=== PATIENT | female | born 2000 | race Caucasian/White ===

== ENCOUNTER 2021-09-30 14:09 | Outpatient (CLI) | payer MEDICAID, SELFPAY ==
[2021-09-30 16:45] LABS: Absolute Lymphocyte Count 3.17 X10^3/uL (0.83-4.51); Basophil# 0.05 X10^3/uL; Basophil% 0.6 % (0-1); Eosinophil# 0.14 X10^3/uL; Eosinophils% 1.8 % (0-5); Hematocrit 45.4 % (37-47); Lymphocyte # 3.17 X10^3/ul (0.83-4.51); Lymphocyte % 40.5 % (19-41); Mean Corpuscular Hgb 31.3 pg (27.0-32.0); Mean Corpuscular Volume 94.6 fL (81-99); Mean Platelet Vol. 10.5 fl (6.2-12.0); Monocyte# 0.49 X10^3/uL; Monocyte% 6.3 % (0-10); NRBC Flagged by Analyzer 0 % (0-5); Neutrophil # 3.95 X10^3/uL (2.7-7.7); Neutrophil % 50.5 % (47-70); Platelet Count 275 K/mm3 (150-450); RBC Distribution Width CV 12.6 % (11.6-14.6); White Blood Count 7.8 K/mm3 (4.4-11.0)
[2021-09-30 16:53] LABS: ALB/GLOB Ratio 1.1 RATIO (0.9-2.4); AST(SGOT) 33 U/L (15-37); Alanine Aminotransfer ALT/SGPT 22 U/L (13-56); Albumin, Serum 3.9 g/dL (3.2-5.0); Alkaline Phosphatase 73 U/L (45-117); Anion Gap 3 (5-15); BUN 10 mg/dL (7-18); BUN/Creat Ratio 14.3 RATIO (10-20); Calcium,Total 8.8 mg/dL (8.5-10.1); Chloride 107 mmol/L (98-107); EST Glomerular Filtration Rate 114 mL/min (>60); Est Glom Filt Rate - Afr Amer 137 mL/min (>60); Globulin 3.4 g/dL (2.2-4.2); Glucose 88 mg/dL (74-106); Potassium 4.1 mmol/L (3.5-5.1); Protein, Total 7.3 g/dL (6.4-8.2); Sodium Level 138 mmol/L (136-145)
== END 2021-09-30 23:59 | disposition home or self-care (01) ==
LOC: BIMLAB 14:10
PROVIDERS: PCP Internal Medicine; Referring Provider Internal Medicine; Visit Provider Internal Medicine
DX: F98.8 Other specified behavioral and emotional disorders with onset usually occurring in childhood and adolescence (principal); Z86.59 Personal history of other mental and behavioral disorders
CPT/HCPCS: 36415; 80053; 85025

== ENCOUNTER → 2022-01-15 | Outpatient (CLI) | payer MEDICAID, SELFPAY ==
[2022-01-19 09:24] LABS: Chlamydia By Nucleic Acid AMP Positive (Negative); Gonococcus By Nucleic Acid AMP Negative (Negative)
== END | disposition home or self-care (01) ==
LOC: LABSPEC 09:38
PROVIDERS: PCP Internal Medicine; Visit Provider Nurse Practitioner Women's Health
DX: Z11.3 Encounter for screening for infections with a predominantly sexual mode of transmission (principal)
CPT/HCPCS: 87491; 87591

== ENCOUNTER → 2022-04-17 | Outpatient (CLI) | payer MEDICAID, SELFPAY ==
[2022-04-21 04:07] LABS: Chlamydia By Nucleic Acid AMP Negative (Negative)
[2022-04-21 17:51] LABS: Gonococcus By Nucleic Acid AMP Negative (Negative)
== END | disposition home or self-care (01) ==
LOC: LABSPEC 13:30
PROVIDERS: Visit Provider Obstetrics & Gynecology
DX: Z11.3 Encounter for screening for infections with a predominantly sexual mode of transmission (principal); Z20.2 Contact with and (suspected) exposure to infections with a predominantly sexual mode of transmission
CPT/HCPCS: 87491; 87591

== ENCOUNTER → 2023-09-24 | Outpatient (CLI) | payer MEDICAID, SELFPAY ==
[2023-09-24 18:11] LABS: hCG Titer Quant., Serum 59235 mIU/mL (1-3)
== END | disposition home or self-care (01) ==
PROVIDERS: Referring Provider Nurse Practitioner Women's Health; Visit Provider Nurse Practitioner Women's Health
DX: N91.2 Amenorrhea, unspecified (principal)
CPT/HCPCS: 36415; 84702

== ENCOUNTER → 2023-09-29 | Outpatient (CLI) | payer MEDICAID, SELFPAY ==
--- NOTE | 2023-09-29 11:19 | US_ITS ---
STUDY: FIRST TRIMESTER OBSTETRICAL ULTRASOUND REASON FOR EXAM: Female, 23 years old . Dating. Unknown LMP. LMP: Unknown TECHNIQUE: Transvaginal TECHNICAL QUALITY: Adequate. PRIOR ULTRASOUND: None. FINDINGS: There is visualization of a single gestational sac in a normal intrauterine position. The mean sac diameter (MSD) measures 3.8 cm, indicating an estimated gestational age (EGA) of 9 weeks, 1 days. The gestational sac shape is within normal limits. There is a visualized yolk sac. The yolk sac measures 5 mm. The placenta is non-visualized. There is visualization of a live embryo. The crown-rump length (CRL) measures 2.9 cm, indicating an estimated gestational age (EGA) of 9 weeks, 3 days. There is demonstrated cardiac activity with a heart rate of 171 bpm. The estimated gestation age (EGA) by US is 9 weeks, 2 days. The estimated date of delivery (PRATIMA) by US is May 01, 2024. The uterus measures 10.7 cm x 7.3 cm x 6 cm. There is no demonstrated uterine fibroid. The cervix is closed. The right ovary measures 2.5 cm x 2.2 cm x 2.3 cm. There is no right ovarian cyst. There is no visualized right adnexal mass or complex lesion. The left ovary measures 2.6 cm x 1.8 cm x 1.4 cm. There is no left ovarian cyst. There is no visualized left adnexal mass or complex lesion. There is no fluid in the cul de sac. US/Transvaginal w/Preg US IMPRESSION: Single live intrauterine gestation with a mean gestational age of 9 weeks and 2 days. Electronically Signed: Alan Mcgregor MD at 9:32 EDT ,
== END | disposition home or self-care (01) ==
LOC: US 11:18
PROVIDERS: Referring Provider Nurse Practitioner Women's Health; Visit Provider Nurse Practitioner Women's Health
DX: Z34.91 Encounter for supervision of normal pregnancy, unspecified, first trimester (principal)
CPT/HCPCS: 76817

== ENCOUNTER → 2023-10-14 | Outpatient (CLI) | payer MEDICAID, SELFPAY ==
[2023-10-14 12:53] LABS: Absolute Lymphocyte Count 2.07 X10^3/uL (0.83-4.51); Absolute Neutrophil Count 8.1 X10^3/uL (2.0-7.7); Basophil# 0.03 X10^3/uL; Basophil% 0.3 % (0-1); Eosinophil# 0.03 X10^3/uL; Eosinophils% 0.3 % (0-5); Hematocrit 39.1 % (37-47); Hemoglobin 13.3 g/dL (12.0-15.0); Lymphocyte # 2.07 X10^3/ul (0.83-4.51); Lymphocyte % 19.1 % (19-41); Mean Corpuscular Hgb 31.2 pg (27.0-32.0); Mean Corpuscular Volume 91.8 fL (81-99); Mean Platelet Vol. 9.4 fl (6.2-12.0); Monocyte# 0.55 X10^3/uL; Monocyte% 5.1 % (0-10); NRBC Flagged by Analyzer 0 % (0-5); Neutrophil # 8.09 X10^3/uL (2.7-7.7); Neutrophil % 74.6 % (47-70); Platelet Count 284 K/mm3 (150-450); RBC Distribution Width CV 12.6 % (11.6-14.6); RBC Distribution Width SD 42.5 fl (35.1-43.9); Red Blood Count 4.26 M/mm3 (4.2-5.4); White Blood Count 10.8 K/mm3 (4.4-11.0)
[2023-10-14 13:11] LABS: Amphetamine Urine VISTA NEGATIVE (<1000 ng/mL); Barbiturate Urine VISTA NEGATIVE (< 200 ng/mL); Benzodiazepine Urine VISTA NEGATIVE (< 200 ng/mL); Cocaine Urine VISTA NEGATIVE (< 300 ng/mL); Ecstacy Urine VISTA NEGATIVE (< 500 ng/mL); Methadone Urine VISTA NEGATIVE (< 300 ng/mL); PCP Urine VISTA NEGATIVE (< 25 ng/mL); THC Urine VISTA POSITIVE (< 50 ng/mL); Vista UDS pH Range 6
[2023-10-14 14:19] LABS: HIV - WCH Non-Reactive (Nonreactive); Hepatitis B Surface Antigen Non-Reactive (Nonreactive); Hepatitis C Antibody Non-Reactive (Nonreactive); Rubella IgG Reactive (Nonreactive); Syphilis Antibodies Non-reactive
[2023-10-18 01:06] LABS: Chlamydia By Nucleic Acid AMP Negative (Negative); Gonococcus By Nucleic Acid AMP Negative (Negative)
[2023-10-20 16:44] LABS: HPV Reflexed? NOT INDICATED
== END | disposition home or self-care (01) ==
LOC: LABSPEC 11:49 → LAB 12:08
PROVIDERS: Referring Provider Advanced Practice Midwife; Visit Provider Registered Nurse
DX: O09.91 Supervision of high risk pregnancy, unspecified, first trimester (principal); Z3A.00 Weeks of gestation of pregnancy not specified
CPT/HCPCS: 36415; 80307; 85025; 86703; 86762; 86780; 86803; 86850; 86900; 86901; 87086; 87340; 87491; 87591; 88175; G0145

== ENCOUNTER → 2024-01-28 | Outpatient (CLI) | payer MEDICAID, SELFPAY ==
[2024-01-28 18:04] LABS: Amphetamine Urine VISTA NEGATIVE (<1000 ng/mL); Barbiturate Urine VISTA NEGATIVE (< 200 ng/mL); Benzodiazepine Urine VISTA NEGATIVE (< 200 ng/mL); Cocaine Urine VISTA NEGATIVE (< 300 ng/mL); Ecstacy Urine VISTA NEGATIVE (< 500 ng/mL); Methadone Urine VISTA NEGATIVE (< 300 ng/mL); PCP Urine VISTA NEGATIVE (< 25 ng/mL); THC Urine VISTA POSITIVE (< 50 ng/mL); Vista UDS pH Range 6
== END | disposition home or self-care (01) ==
LOC: LABSPEC 16:41
PROVIDERS: Referring Provider Obstetrics & Gynecology; Visit Provider Obstetrics & Gynecology
DX: O99.320 Drug use complicating pregnancy, unspecified trimester (principal); Z3A.00 Weeks of gestation of pregnancy not specified
CPT/HCPCS: 80307

== ENCOUNTER → 2024-02-11 | Outpatient (CLI) | payer MEDICAID, SELFPAY ==
[2024-02-11 13:33] LABS: Absolute Neutrophil Count 9.7 X10^3/uL (2.0-7.7); Basophil% 0.7 % (0-1); Eosinophil# 0.09 X10^3/uL; Eosinophils% 0.6 % (0-5); Hematocrit 35.7 % (37-47); Lymphocyte % 22.2 % (19-41); Mean Corp Hgb Conc 33.6 g/dL (32-36); Mean Corpuscular Hgb 31.7 pg (27.0-32.0); Mean Corpuscular Volume 94.2 fL (81-99); Mean Platelet Vol. 10.2 fl (6.2-12.0); Monocyte# 0.98 X10^3/uL; Monocyte% 6.8 % (0-10); NRBC Flagged by Analyzer 0 % (0-5); Neutrophil # 9.65 X10^3/uL (2.7-7.7); Neutrophil % 66.9 % (47-70); Platelet Count 294 K/mm3 (150-450); RBC Distribution Width SD 44.6 fl (35.1-43.9); Red Blood Count 3.79 M/mm3 (4.2-5.4); White Blood Count 14.4 K/mm3 (4.4-11.0)
[2024-02-11 13:47] LABS: Glucose Challenge Gest 1H 50g 140 mg/dL (70-140)
[2024-02-11 14:18] LABS: HIV - WCH Non-Reactive (Nonreactive); Syphilis Antibodies Non-reactive
== END | disposition home or self-care (01) ==
LOC: LAB 13:05
PROVIDERS: Referring Provider Obstetrics & Gynecology; Visit Provider Obstetrics & Gynecology
DX: O09.91 Supervision of high risk pregnancy, unspecified, first trimester (principal); Z13.1 Encounter for screening for diabetes mellitus; Z12.4 Encounter for screening for malignant neoplasm of cervix; Z3A.00 Weeks of gestation of pregnancy not specified
CPT/HCPCS: G0145; 82950; 85025; 86703; 86780; 88175

== ENCOUNTER → 2024-02-22 | Outpatient (CLI) | payer MEDICAID, SELFPAY ==
[2024-02-22 11:02] LABS: Glucose GTT-Gestation. Fasting 85 mg/dL (<105)
[2024-02-22 11:51] LABS: Glucose GTT-Gestational 1 Hr 170 mg/dL (<190)
[2024-02-22 12:14] LABS: Glucose GTT-Gestational 2 Hr 129 mg/dL (<165)
[2024-02-22 13:26] LABS: Glucose GTT-Gestational 3 Hr 98 L (<145)
== END | disposition home or self-care (01) ==
LOC: LAB 06:34
PROVIDERS: Referring Provider Obstetrics & Gynecology; Visit Provider Obstetrics & Gynecology
DX: O99.810 Abnormal glucose complicating pregnancy (principal); Z3A.00 Weeks of gestation of pregnancy not specified
CPT/HCPCS: 36415; 82951; 82952

== ENCOUNTER → 2024-04-07 | Outpatient (CLI) | payer MEDICAID, SELFPAY | END | disposition home or self-care (01) | LOC: LABSPEC 09:32 | PROVIDERS: Referring Provider Advanced Practice Midwife; Visit Provider Advanced Practice Midwife | DX: Z34.93 Encounter for supervision of normal pregnancy, unspecified, third trimester (principal) | CPT/HCPCS: 87081 ==

== ENCOUNTER 2024-04-27 15:48 | Inpatient (IN) | payer MEDICAID, SELFPAY ==
[2024-04-27] VITALS (26 sets, daily range): BP systolic 116–132; BP diastolic 63–76; PULSE 88–136; RESP 16; TEMP 36.4–37.1; O2SAT 93–100; BMI 34.9
[2024-04-27 10:18] LABS: Absolute Lymphocyte Count 3.54 X10^3/uL (0.83-4.51); Absolute Neutrophil Count 13.8 X10^3/uL (2.0-7.7); Basophil% 0.5 % (0-1); Eosinophils% 0.5 % (0-5); Hematocrit 34.6 % (37-47); Hemoglobin 11.2 g/dL (12.0-15.0); Lymphocyte # 3.54 X10^3/ul (0.83-4.51); Lymphocyte % 18.2 % (19-41); Mean Corp Hgb Conc 32.4 g/dL (32-36); Mean Corpuscular Hgb 30.3 pg (27.0-32.0); Mean Corpuscular Volume 93.5 fL (81-99); Mean Platelet Vol. 10.9 fl (6.2-12.0); Monocyte# 1.33 X10^3/uL; Monocyte% 6.8 % (0-10); NRBC Flagged by Analyzer 0 % (0-5); Neutrophil # 13.76 X10^3/uL (2.7-7.7); Neutrophil % 70.9 % (47-70); Platelet Count 338 K/mm3 (150-450); RBC Distribution Width CV 13.4 % (11.6-14.6); RBC Distribution Width SD 45.8 fl (35.1-43.9); White Blood Count 19.4 K/mm3 (4.4-11.0)
[2024-04-27 10:38] LABS: ALB/GLOB Ratio 0.6 RATIO (0.9-2.4); AST(SGOT) 23 U/L (15-37); Alanine Aminotransfer ALT/SGPT 13 U/L (13-56); Albumin, Serum 2.6 g/dL (3.2-5.0); Alkaline Phosphatase 158 U/L (45-117); Anion Gap 7 (5-15); BUN 8 mg/dL (7-18); BUN/Creat Ratio 13.5 RATIO (10-20); Calcium,Total 8.9 mg/dL (8.5-10.1); Chloride 109 mmol/L (98-107); Creatinine, Serum 0.59 mg/dL (0.55-1.02); EST Glomerular Filtration Rate 134 mL/min (>60); Est Glom Filt Rate - Afr Amer 162 mL/min (>60); Glucose 114 mg/dL (74-106); Potassium 3.5 mmol/L (3.5-5.1); Protein, Total 6.6 g/dL (6.4-8.2); Sodium Level 137 mmol/L (136-145)
--- NOTE | 2024-04-27 12:30 | US_ITS ---
STUDY: SECOND AND THIRD TRIMESTER OBSTETRICAL ULTRASOUND - LIMITED REASON FOR EXAM: Female, 23 years old growth LMP: July 26, 2023. PRIOR ULTRASOUND: None. TECHNIQUE: Transabdominal TECHNICAL QUALITY: Adequate. FINDINGS: There is a single intrauterine fetus. The fetus is in a cephalic presentation. There is demonstrated cardiac activity with a heart rate of 155 bpm. There is a normal amniotic fluid volume. The largest amniotic fluid pocket measures 8 cm. The amniotic fluid index (ELIOT) is 17 cm. The placenta is anterior in location and is not low lying. There are Grade 3 placental changes. BIOMETRY: BPD: 9.9 cm: 40 weeks, 6 days HC: 36.4 cm: 40 weeks, days AC: 37.9 cm: 41 weeks, 6 days FL: 7.5 cm: 38 weeks, 4 days Age by LMP: 39 weeks, 3 days. PRATIMA by LMP: May 01, 2024. age by current US: 40 weeks, 3 days. PRATIMA by current US: April 24, 2024. Estimated weight: 4298 grams, +/- 645 grams, 95 percentile. IMPRESSION: Single live uterine gestation with a mean gestational age of 40 weeks and 3 days. Electronically Signed: Alan Mcgregor MD at 14:37 EDT , STUDY: OBSTETRICAL ULTRASOUND - BIOPHYSICAL PROFILE REASON FOR EXAM: Female, 23 years old growth LMP: July 26, 2023 PRIOR ULTRASOUND: None. TECHNIQUE: Transabdominal TECHNICAL QUALITY: Adequate. FINDINGS: BIOPHYSICAL PROFILE: Breathing Movements (FBM): 2 Gross Body Movements (GBM): 2 Tone (FT): 2 Amniotic Fluid Volume (AFV): 2 TOTAL SCORE: US/OB Limited With Biometrics IMPRESSION: Normal biophysical profile of 02/02. Electronically Signed: Alan Mcgregor MD at 14:38 EDT ,
--- NOTE | 2024-04-27 12:30 | US_ITS ---
STUDY: SECOND AND THIRD TRIMESTER OBSTETRICAL ULTRASOUND - LIMITED REASON FOR EXAM: Female, 23 years old growth LMP: July 26, 2023. PRIOR ULTRASOUND: None. TECHNIQUE: Transabdominal TECHNICAL QUALITY: Adequate. FINDINGS: There is a single intrauterine fetus. The fetus is in a cephalic presentation. There is demonstrated cardiac activity with a heart rate of 155 bpm. There is a normal amniotic fluid volume. The largest amniotic fluid pocket measures 8 cm. The amniotic fluid index (ELIOT) is 17 cm. The placenta is anterior in location and is not low lying. There are Grade 3 placental changes. BIOMETRY: BPD: 9.9 cm: 40 weeks, 6 days HC: 36.4 cm: 40 weeks, days AC: 37.9 cm: 41 weeks, 6 days FL: 7.5 cm: 38 weeks, 4 days Age by LMP: 39 weeks, 3 days. PRATIMA by LMP: May 01, 2024. age by current US: 40 weeks, 3 days. PRATIMA by current US: April 24, 2024. Estimated weight: 4298 grams, +/- 645 grams, 95 percentile. IMPRESSION: Single live uterine gestation with a mean gestational age of 40 weeks and 3 days. Electronically Signed: Alan Mcgregor MD at 14:37 EDT , STUDY: OBSTETRICAL ULTRASOUND - BIOPHYSICAL PROFILE REASON FOR EXAM: Female, 23 years old growth LMP: July 26, 2023 PRIOR ULTRASOUND: None. TECHNIQUE: Transabdominal TECHNICAL QUALITY: Adequate. FINDINGS: BIOPHYSICAL PROFILE: Breathing Movements (FBM): 2 Gross Body Movements (GBM): 2 Tone (FT): 2 Amniotic Fluid Volume (AFV): 2 TOTAL SCORE: US/OB Limited With Biometrics IMPRESSION: Normal biophysical profile of 02/02. Electronically Signed: Alan Mcgregor MD at 14:38 EDT ,
--- NOTE | 2024-04-27 13:05 | EKG12_ITS ---
Test Reason : MCLA Blood Pressure : */* mmHG Vent. Rate : 124 BPM Atrial Rate : 124 BPM P-R Int : 98 ms QRS Dur : 84 ms QT Int : 300 ms P-R-T Axes : 39 36 33 degrees QTcB Int : 431 ms Sinus tachycardia with short [place] Septal infarct , age undetermined Abnormal ECG Confirmed by FELICITY REYES, TOMMY ([id number]), marketing editor MARY CEDEÑO ([id number]) on 04/28/2024 8:21:34 AM Referred By: Yolanda Badillo Confirmed By: TOMMY BLEVINS MD
--- NOTE | 2024-04-27 13:05 | EKG12_ITS ---
Test Reason : MCLA Blood Pressure : */* mmHG Vent. Rate : 124 BPM Atrial Rate : 124 BPM P-R Int : 98 ms QRS Dur : 84 ms QT Int : 300 ms P-R-T Axes : 39 36 33 degrees QTcB Int : 431 ms Sinus tachycardia with short [place] Septal infarct , age undetermined Abnormal ECG Confirmed by FELICITY REYES, TOMMY ([id number]), videotape editor MARY CEDEÑO ([id number]) on 04/28/2024 8:21:34 AM Referred By: Yolanda Badillo Confirmed By: TOMMY BLEVINS MD
[2024-04-27 13:10] LABS: Absolute Lymphocyte Count 3.16 X10^3/uL (0.83-4.51); Absolute Neutrophil Count 14.9 X10^3/uL (2.0-7.7); Basophil# 0.06 X10^3/uL; Basophil% 0.3 % (0-1); Eosinophil# 0.05 X10^3/uL; Eosinophils% 0.2 % (0-5); Hematocrit 32.8 % (37-47); Hemoglobin 10.6 g/dL (12.0-15.0); Lymphocyte # 3.16 X10^3/ul (0.83-4.51); Lymphocyte % 15.7 % (19-41); Mean Corp Hgb Conc 32.3 g/dL (32-36); Mean Corpuscular Hgb 30.1 pg (27.0-32.0); Mean Corpuscular Volume 93.2 fL (81-99); Mean Platelet Vol. 10.8 fl (6.2-12.0); Monocyte# 1.24 X10^3/uL; Monocyte% 6.2 % (0-10); NRBC Flagged by Analyzer 0 % (0-5); Neutrophil # 14.89 X10^3/uL (2.7-7.7); Neutrophil % 73.8 % (47-70); Platelet Count 337 K/mm3 (150-450); RBC Distribution Width CV 13.5 % (11.6-14.6); Red Blood Count 3.52 M/mm3 (4.2-5.4); White Blood Count 20.2 K/mm3 (4.4-11.0)
[2024-04-27 14:04] LABS: Color, Urine Yellow (Yellow); Glucose, Dipstick Normal (Normal); Ketone-Dipstick Negative (Negative); Leukocyte Esterase-Dipstick 500 /ul (Negative); Nitrite-Dipstick Negative (Negative); Occult Blood-Urine 10 /ul (Negative); Protein-Dipstick 30 mg/dl (Negative); Urine Bilirubin Dipstick Negative (Negative); Urine Clarity Sl. Cloudy (Clear); Urine Urobilinogen Normal (Normal)
[2024-04-27] MEDS: Lactated Ringers 1,000 ML 999 ML IV (14:40)
[2024-04-27 21:15] LABS: Hematocrit 32.4 % (37-47); Hemoglobin 10.8 g/dL (12.0-15.0); Mean Corp Hgb Conc 33.3 g/dL (32-36); Mean Corpuscular Hgb 30.8 pg (27.0-32.0); Mean Corpuscular Volume 92.3 fL (81-99); Mean Platelet Vol. 10.7 fl (6.2-12.0); POSITIVE DIFFERENTIAL YES; Platelet Count 332 K/mm3 (150-450); RBC Distribution Width CV 13.6 % (11.6-14.6); RBC Distribution Width SD 45.5 fl (35.1-43.9); Red Blood Count 3.51 M/mm3 (4.2-5.4)
[2024-04-27 21:35] LABS: Amphetamine Urine VISTA NEGATIVE (<1000 ng/mL); Barbiturate Urine VISTA NEGATIVE (< 200 ng/mL); Benzodiazepine Urine VISTA NEGATIVE (< 200 ng/mL); Cocaine Urine VISTA NEGATIVE (< 300 ng/mL); Ecstacy Urine VISTA NEGATIVE (< 500 ng/mL); Methadone Urine VISTA NEGATIVE (< 300 ng/mL); PCP Urine VISTA NEGATIVE (< 25 ng/mL); THC Urine VISTA NEGATIVE (< 50 ng/mL); Vista UDS pH Range 6
[2024-04-27] MEDS: miSOPROStol 25 MCG TABLET VAGINAL (21:39)
[2024-04-27] MEDS: 0.9% Saline Lock 10 ML Syringe IV (21:39)
[2024-04-27 21:51] LABS: Syphilis Antibodies Non-reactive
[2024-04-27 22:13] LABS: Differential Indicated MANUAL DIFF
[2024-04-27 22:22] LABS: Differential Comment MANUAL
[2024-04-27 22:26] LABS: Lymphocyte 14 % (19-41); Metamyelocyte 2 % (0-1); Monocyte 8 % (0-10); Neutrophil-Band 1 % (0-5); Neutrophil-Segmented 74 % (47-70); Promyelocyte 1 % (0-0)
[2024-04-27 22:27] LABS: Polychromasia RARE; Reactive Lymphocyte 1+; Toxic Granulation 1+
[2024-04-27 22:28] LABS: Absolute Lymphocyte Count 3.08 X10^3/uL (0.83-4.51); Absolute Neutrophil Count 16.5 X10^3/uL (2.0-7.7)
[2024-04-28] VITALS (117 sets, daily range): BP systolic 96–168; BP diastolic 56–87; PULSE 84–145; RESP 12–20; TEMP 36.1–37.1; O2SAT 77–100
[2024-04-28] MEDS: LACTATED RINGERS 500 ML 999 ML IV ×2 (01:52→04:27)
[2024-04-28] MEDS: fentaNYL 100 MCG/2 ML Ampul IV (04:28)
[2024-04-28] MEDS: Lactated Ringers 1,000 ML 999 ML IV ×2 (05:12→10:40)
[2024-04-28] MEDS: miSOPROStol 25 MCG TABLET VAGINAL (05:32)
--- NOTE | 2024-04-28 06:52 | HP.PCM.OB_ITS ---
HPI - General General Date of Admission: 04/27/24 HPI Narrative ADRIANNA SINGH, is a 23 F who presents with elevated heart rate, covid positive and leukocytosis. no abdominal pain no vb lof co itching on lower legs and small rash. EFW 4300g on US today and cat II tracing on early evaluation. no dyspnea, respiratory symptoms on day 10 and improving no fevers. temp 98 Maternal Data Information PRATIMA Calculator Estimated Delivery Date Method Current WG Current Estimate 05/01/24 Ultrasound #1 39w 4d PFSH PFSH Medical History (Updated 04/28/24 @ 06:[address] Yolanda Badillo MD) Anxiety Chlamydia infection Tobacco abuse ADD (attention deficit disorder) History of depression Home Medications ?Medication ?Instructions ?Recorded ?Last Taken ?Type NK 04/21/24 Unknown History Allergy/AdvReac Type Severity Reaction Status Date / Time No Known Allergies Allergy Verified 04/27/24 19:48 Family History Mother Hypertension Grandmother Hypertension Kidney disease Sister Heart disease Social History (Updated 04/27/24 @ 08:29 by Janessa Albert) adopted: No household members: other details: mom & step-dad current occupational status: unemployed current occupational exposures/hazards: No pets and animals: Yes pets and animals: cat(s) and dog(s) history of recent travel: No sexually active: Yes Smoking Status: Current some day smoker alcohol intake: never substance use type: does not use well-balanced diet: daily or most days caffeine: Yes Type: carbonated beverages eating out: 1-3 times/week during the past year weight has: remained stable what type of physical activity do you participate in: none seatbelt use: always do you feel safe at home: Yes History 1 Elective abortions Hx Para 0 Spontaneous abortions Hx # Term Pregnancies Ectopic pregnancies Hx # Pregnancies Multiple births # of living children 0 Visit Details Expected Delivery Route/Plan Labor Preferences- CB/BF classes: enc labor support person: Hiram labor intervention preferences: [] pain management options preferred: epidural cut cord/dad catch: yes : yes PP control planned: discussed discussed possible routes of delivery and associated risks: [] special requests: [] Plans Covid status: [] Flu vaccine: done Tdap vaccine: given Rhogam: NA LARC form signed: yes movement and labor precautions reviewed. Problem list reviewed and updated with the most current plan of care details and appropriate orders placed. Relevant counseling for the gestational age provided. Continue routine care and follow up unless otherwise noted in visit notes/problem list details OB Flowsheet Initial Weight: Not Recorded Date -?-?-?-?-?-?-?-?-?-?-?-?- EGA Weight BP Urine Prot -?-?-?-?-?-?-?-?-?-?-?-?- Glucose FHR FuHt Pres Dilation -?-?-?-?-?-?-?-?-?-?-?-?- Effaced St Visit Note 10/14/23 -?-?-?-?-?-?-?-?-?-?-?-?- 11w 3d 162 lb 108/71 -?-?-?-?-?-?-?-?-?-?-?-?- 157 -?-?-?-?-?-?-?-?-?-?-?-?- kw- US early to confirm . requesting NIPT. 11/10/23 -?-?-?-?-?-?-?-?-?-?-?-?- 15w 2d 164 lb 6 oz 123/77 Nega tive -?-?-?-?-?-?-?-?-?-?-?-?- Negative 150 -?-?-?-?-?-?-?-?-?-?-?-?- JV- no cramping or spotting. recommend stopping THC and will start zofran. 01/28/24 -?-?-?-?-?-?-?-?-?-?-?-?- 26w 4d 184 lb 106/71 -?-?-?-?-?-?-?-?-?-?-?-?- 147 -?-?-?-?-?-?-?-?-?-?-?-?- JV- pt missed 2 appointments due to phone problems. She will scheduled all of her visits before she leaves. She consents to a tox screen due to h/o prior pos THC. glucola given 02/11/24 -?-?-?-?-?-?-?-?-?-?-?-?- 28w 4d 182 lb 6 oz 104/69 Nega tive -?-?-?-?-?-?-?-?-?-?-?-?- Negative 135 28 -?-?-?-?-?-?-?-?-?-?-?-?- JV- no lof, vagi nal bleeding, or dec fm. glucola done today. normal cbc. tdap done. 02/23/24 -?-?-?-?-?-?-?-?-?-?-?-?- 30w 2d 181 lb 8 oz 115/78 Nega tive -?-?-?-?-?-?-?-?-?-?-?-?- Negative 150 30 -?-?-?-?-?-?-?-?-?-?-?-?- MH-No VB, LOF. G ood Fm. Larc 03/10/24 -?-?-?-?-?-?-?-?-?-?-?-?- 32w 4d 188 lb 99/64 Negative -?-?-?-?-?-?-?-?-?-?-?-?- Negative 140 32 -?-?-?-?-?-?-?-?-?-?-?-?- SM- no vb lof go od fm no regular ctx 03/24/24 -?-?-?-?-?-?-?-?-?-?-?-?- 34w 4d 190 lb 8 oz 108/76 Nega tive -?-?-?-?-?-?-?-?-?-?-?-?- Negative 143 34 -?-?-?-?-?-?-?-?-?-?-?-?- JV- pt complains of hip pain. recommend tylenol and warm epsom salt baths and yoga. no lof, vaginal bleeding, or dec fm 04/07/24 -?-?-?--?-?-?-?-?-?-?-?-?- 36w 4d 193 lb 2 oz 119/76 Nega tive -?-?-?-?-?-?-?-?-?-?-?-?- Negative 150 36 0 -?-?-?-?-?-?-?-?-?-?-?-?- KW- no vb, cramp ing. lof. gbs today. good fm 04/13/24 -?-?-?-?-?-?-?-?-?-?-?-?- 37w 3d 194 lb 111/74 Negative -?-?-?-?-?-?-?-?-?-?-?-?- Negative 145 37 Cephalic 0 .5 -?-?-?-?-?-?-?-?-?-?-?-?- SM- no vb lof go od fm no regular ctx, states she quite marijuana 04/21/24 -?-?-?-?-?-?-?-?-?-?-?-?- 38w 4d 197 lb 117/78 Negative -?-?-?-?-?-?-?-?-?-?-?-?- Negative 140 38 Cephalic 0 -?-?-?-?-?-?-?-?-?-?-?-?- JV- pt has a cou gh and fevers. she declines to go to urgent care to rule out covid. recommend rest, dydration, mucinex DM and tylenol. No labor signs. vtx on bedside scan. 04/27/24 -?-?-?-?-?-?-?-?-?-?-?-?- 39w 3d 198 lb 4 oz 102/65 Nega tive -?-?-?-?-?-?-?-?-?-?-?-?- Negative 140 39 Cephalic 0 -?-?-?-?-?-?-?-?-?-?-?-?- SM- no vb lof go od fm no regular ctx co itching on her lower legs and possible rash, ordered labs and BPP NST FHR Rate Baby A Baseline: 130 Variability:: Moderate Accelerations:: 15 x 15 Decelerations:: Late (two isolated) NST Reactive:: Yes FHR Category:: Category I Uterine Activity:: irregular ROS Constitutional Constitutional: Reports systems reviewed and no addt'l complaints, except as documented Eyes Eyes: Denies change in vision ENT HEENT: Reports systems reviewed and no addt'l complaints, except as documented; Denies headache(s) Cardiovascular Cardiovascular: Reports systems reviewed and no addt'l complaints, except as documented; Denies chest pain or dyspnea Respiratory/Chest Respiratory/Chest: Reports systems reviewed and no addt'l complaints, except as documented Gastrointestinal Gastrointestinal: Reports systems reviewed and no addt'l complaints, except as documented; Denies abdominal pain Genitourinary Genitourinary: Reports systems reviewed and no addt'l complaints, except as documented, contractions Details: present (irregular) and movement Details: present; Denies dysuria or genital lesions Musculoskeletal Musculoskeletal: Reports systems reviewed and no addt'l complaints, except as documented Neurologic Neurologic: Reports systems reviewed and no addt'l complaints, except as documented Endocrine Endocrinology: Reports systems reviewed and no addt'l complaints, except as documented Vital Signs Vital Signs Vital Signs: 04/27/24 12:38 04/27/24 12:38 04/27/24 12:39 Temperature Temperature Source Tympanic Pulse Rate 133 H Respiratory Rate Blood Pressure 132/74 H BP Systolic 132 BP Diastolic 74 Pulse Ox 04/27/24 12:39 04/27/24 12:39 04/27/24 12:39 Temperature 98.8 F Temperature Source Pulse Rate Respiratory Rate 16 Blood Pressure BP Systolic BP Diastolic Pulse Ox 98 04/27/24 12:42 04/27/24 12:42 04/27/24 12:47 Temperature Temperature Source Pulse Rate 133 H 136 H Respiratory Rate Blood Pressure BP Systolic BP Diastolic Pulse Ox 96 04/27/24 12:47 04/27/24 12:52 04/27/24 12:52 Temperature Temperature Source Pulse Rate 136 H Respiratory Rate Blood Pressure BP Systolic BP Diastolic Pulse Ox 97 97 04/27/24 12:54 04/27/24 12:54 04/27/24 12:57 Temperature Temperature Source Pulse Rate 134 H 135 H Respiratory Rate Blood Pressure BP Systolic BP Diastolic Pulse Ox 93 04/27/24 12:57 04/27/24 13:02 04/27/24 13:02 Temperature Temperature Source Pulse Rate 130 H Respiratory Rate Blood Pressure BP Systolic BP Diastolic Pulse Ox 97 97 04/27/24 13:07 04/27/24 13:07 04/27/24 13:09 Temperature Temperature Source Pulse Rate 129 H Respiratory Rate Blood Pressure 116/65 BP Systolic 116 BP Diastolic 65 Pulse Ox 97 04/27/24 13:09 04/27/24 13:12 04/27/24 13:12 Temperature Temperature Source Pulse Rate 125 H 127 H Respiratory Rate Blood Pressure BP Systolic BP Diastolic Pulse Ox 98 04/27/24 13:17 04/27/24 13:17 04/27/24 13:22 Temperature Temperature Source Pulse Rate 130 H 122 H Respiratory Rate Blood Pressure BP Systolic BP Diastolic Pulse Ox 98 04/27/24 13:22 04/27/24 13:23 04/27/24 13:23 Temperature Temperature Source Pulse Rate 133 H Respiratory Rate Blood Pressure BP Systolic BP Diastolic Pulse Ox 97 93 04/27/24 14:47 04/27/24 14:47 04/27/24 14:52 Temperature Temperature Source Pulse Rate 108 H 102 H Respiratory Rate Blood Pressure BP Systolic BP Diastolic Pulse Ox 97 04/27/24 14:52 04/27/24 14:57 04/27/24 14:57 Temperature Temperature Source Pulse Rate 104 H Respiratory Rate Blood Pressure BP Systolic BP Diastolic Pulse Ox 98 97 04/27/24 15:02 04/27/24 15:02 04/27/24 15:07 Temperature Temperature Source Pulse Rate 105 H 88 Respiratory Rate Blood Pressure BP Systolic BP Diastolic Pulse Ox 98 04/27/24 15:07 04/27/24 15:12 04/27/24 15:12 Temperature Temperature Source Pulse Rate 102 H Respiratory Rate Blood Pressure BP Systolic BP Diastolic Pulse Ox 98 99 04/27/24 15:17 04/27/24 15:17 04/27/24 15:22 Temperature Temperature Source Pulse Rate 96 91 Respiratory Rate Blood Pressure BP Systolic BP Diastolic Pulse Ox 100 04/27/24 15:22 04/27/24 16:09 04/27/24 16:09 Temperature Temperature Source Pulse Rate 108 H Respiratory Rate Blood Pressure 127/76 H BP Systolic 127 BP Diastolic 76 Pulse Ox 100 04/27/24 19:42 04/27/24 19:42 04/27/24 19:42 Temperature Temperature Source Pulse Rate 116 H 112 H Respiratory Rate Blood Pressure 129/63 H BP Systolic 129 BP Diastolic 63 Pulse Ox 04/27/24 19:42 04/27/24 19:44 04/27/24 19:44 Temperature Temperature Source Temporal Pulse Rate Respiratory Rate 16 Blood Pressure BP Systolic BP Diastolic Pulse Ox 97 04/27/24 19:44 04/27/24 21:23 04/27/24 21:23 Temperature 97.6 F L Temperature Source Pulse Rate 109 H Respiratory Rate Blood Pressure 116/65 BP Systolic 116 BP Diastolic 65 Pulse Ox 04/28/24 01:53 04/28/24 01:53 04/28/24 01:53 Temperature Temperature Source Temporal Pulse Rate 100 Respiratory Rate Blood Pressure 116/67 BP Systolic 116 BP Diastolic 67 Pulse Ox 04/28/24 01:53 04/28/24 01:53 04/28/24 03:28 Temperature 97.2 F L Temperature Source Pulse Rate 111 H Respiratory Rate 16 Blood Pressure BP Systolic BP Diastolic Pulse Ox 04/28/24 03:28 04/28/24 03:33 04/28/24 03:33 Temperature Temperature Source Pulse Rate 103 H Respiratory Rate Blood Pressure BP Systolic BP Diastolic Pulse Ox 98 97 04/28/24 03:38 04/28/24 03:38 04/28/24 03:43 Temperature Temperature Source Pulse Rate 104 H 99 Respiratory Rate Blood Pressure BP Systolic BP Diastolic Pulse Ox 96 04/28/24 03:43 04/28/24 03:48 04/28/24 03:48 Temperature Temperature Source Pulse Rate 100 Respiratory Rate Blood Pressure BP Systolic BP Diastolic Pulse Ox 97 96 04/28/24 03:53 04/28/24 03:53 04/28/24 03:58 Temperature Temperature Source Pulse Rate 103 H 102 H Respiratory Rate Blood Pressure BP Systolic BP Diastolic Pulse Ox 98 04/28/24 03:58 04/28/24 04:03 04/28/24 04:03 Temperature Temperature Source Pulse Rate 99 Respiratory Rate Blood Pressure BP Systolic BP Diastolic Pulse Ox 98 98 04/28/24 04:08 04/28/24 04:08 04/28/24 04:11 Temperature Temperature Source Pulse Rate 111 H 105 H Respiratory Rate Blood Pressure BP Systolic BP Diastolic Pulse Ox 99 04/28/24 04:11 04/28/24 04:13 04/28/24 04:13 Temperature Temperature Source Pulse Rate 107 H Respiratory Rate Blood Pressure BP Systolic BP Diastolic Pulse Ox 77 97 04/28/24 04:18 04/28/24 04:18 04/28/24 05:37 Temperature Temperature Source Pulse Rate 113 H Respiratory Rate Blood Pressure 124/69 H BP Systolic 124 BP Diastolic 69 Pulse Ox 99 04/28/24 05:37 04/28/24 05:37 04/28/24 05:37 Temperature Temperature Source Temporal Pulse Rate 95 Respiratory Rate 16 Blood Pressure BP Systolic BP Diastolic Pulse Ox 04/28/24 05:37 Temperature 97.3 F L Temperature Source Pulse Rate Respiratory Rate Blood Pressure BP Systolic BP Diastolic Pulse Ox Weight Weight: 197 lb 3.2 oz Body Mass Index (BMI) 34.9 Physical Exam Const alert, oriented x3, no apparent distress and healthy appearing HEENT normocephalic and moist oral mucous membranes Head and Scalp: atraumatic Neck full ROM, no lymphadenopathy, supple and thyroid normal General: trachea midline Lymph Lymphatic: no lymphadenopathy noted Chest inspection of chest normal Resp normal respiratory effort Cardio Rate: tachycardic GI normal to inspection, nondistended, normoactive bowel sounds, soft to palpation and non-tender Inspection: gravid external exam normal Manual OB Exam: estimated gestational size appropriate, presentation cephalic, dilated, effaced and station Extremity normal to inspection General Extremity: Negative for edema Skin no rashes or lesions noted Neuro no focal motor deficits and deep tendon reflexes 2+ bilaterally Motor Exam: strength 5/5 throughout and clonus absent Psych mental status grossly normal Labs Labs Labs: Blood Type A POSITIVE Antibody Screen NEGATIVE Hct 32.4 % (37-47) L Hgb 10.8 g/dL (12.0-15.0) L Obstetrics Ultrasound Syphilis Total Ab Non-reactive Rubella IgG Antibody Reactive (Nonreactive) Hep Bs Antigen Non-Reactive (Nonreactive) Hepatitis C Antibody Non-Reactive (Nonreactive) Chlamydia DNA (HORACIO) Negative (Negative) N.gonorrhoeae DNA (HORACIO) Negative (Negative) HIV 1&2 Antibody Non-Reactive (Nonreactive) Glucose 1 Hr 50 gm 140 mg/dL (70-140) Gest Glucose Tolerance MG/DL Miscellaneous Test Pending Assessment & Plan (1) Category II heart rate tracing during labor and delivery: (2) COVID-19 affecting , antepartum: (3) Abnormal glucose affecting : COMMENT: abnormal 1 hour, normal 3 hr gtt (4) Drug use affecting : QUALIFIERS: Trimester: third trimester Qualified Code(s): O99.323 - Drug use complicating , third trimester COMMENT: stopped using when found out she was . positive at [facility]. +marijuana 02/10: states no use X 3 weeks (5) Supervision of high-risk : QUALIFIERS: Trimester: third trimester Qualified Code(s): O09.93 - Supervision of high risk , unspecified, third trimester COMMENT: [id number], PRATIMA 05/01/24, girl marcella son Hiram (6) : QUALIFIERS: Weeks of gestation: 39 weeks Qualified Code(s): Z3A.39 - 39 weeks gestation of COMMENT: GBS neg,anatomy nl, NIPT low risk, declined carrier testing (7) ADD (attention deficit disorder): QUALIFIERS: Hyperactivity presence: present Attention deficit-hy peractivity disorder type: combined inattentive-hyperactive Qualified Code(s): F90.2 - Attention-deficit hyperactivity disorder, combined type (8) History of depression: COMMENT: stable (9) Large for gestational age fetus: COMMENT: efw 4300g on US today PLAN: Plan EKG reviewed with CINDY hu, tracing reviewed, recommend keeping and plan IOL with cytotec.
--- NOTE | 2024-04-28 07:54 | PN_ITS ---
Progress Note Coping well with contractions-patient resting through them current tracing: FHT: 140 Moderate variability reactive no decelerations category I tracing [place]: 2-3 minute mild Contractions Membranes:intact SVE:50/-3 A/P: Continue with position changes Plan another dose of Cytotec at 0930 [place] bulb placement after next dose of cytotec Epidural per anesthesia GBS neg Anticipate Dr Badillo aware of above assessment and agrees with plan of care Assessment & Plan Assessment/Plan (1) Large for gestational age fetus: (2) Category II heart rate tracing during labor and delivery: (3) COVID-19 affecting , antepartum: (4) Abnormal glucose affecting : (5) Drug use affecting : QUALIFIERS: Trimester: third trimester Qualified Code(s): O99.323 - Drug use complicating , third trimester (6) Supervision of high-risk : QUALIFIERS: Trimester: third trimester Qualified Code(s): O09.93 - Supervision of high risk , unspecified, third trimester (7) : QUALIFIERS: Weeks of gestation: 39 weeks Qualified Code(s): Z3A.39 - 39 weeks gestation of (8) ADD (attention deficit disorder): QUALIFIERS: Hyperactivity presence: present Attention deficit- hyperactivity disorder type: combined inattentive-hyperactive Qualified Cod e(s): F90.2 - Attention-deficit hyperactivity disorder, combined type (9) History of depression: (10) Encounter for induction of labor: Multi Select Codes Urinary/Genital Urinary/Genital CPT Codes: No Charge
[2024-04-28] MEDS: Lactated Ringers 1,000 ML 200 ML IV ×2 (11:10→15:46)
[2024-04-28] MEDS: fentaNYL-bupivacaine (epidural) 100 ML BAG EPIDURAL ×3 (11:29→20:51)
--- NOTE | 2024-04-28 12:05 | PN_ITS ---
Progress Note comfortable with epidural current tracing: FHT: 140 Moderate variability reactive no decelerations category I tracing [place]: 3-4 Contractions Membranes:intact SVE:2/70/-1 p[place]co bulb inserted A/P: Continue with position changes start pitocin per protocol Epidural per anesthesia GBS neg Anticipate Dr Badillo aware of above assessment and agrees with plan of care Assessment & Plan Assessment/Plan (1) Encounter for induction of labor: (2) Large for gestational age fetus: (3) Category II heart rate tracing during labor and delivery: (4) COVID-19 affecting , antepartum: (5) Abnormal glucose affecting : (6) Drug use affecting : QUALIFIERS: Trimester: third trimester Qualified Code(s): O99.323 - Drug use complicating , third trimester (7) Supervision of high-risk : QUALIFIERS: Trimester: third trimester Qualified Code(s): O09.93 - Supervision of high risk , unspecified, third trimester (8) : QUALIFIERS: Weeks of gestation: 39 weeks Qualified Code(s): Z3A.39 - 39 weeks gestation of (9) ADD (attention deficit disorder): QUALIFIERS: Hyperactivity presence: present Attention deficit- hyperactivity disorder type: combined inattentive-hyperactive Qualified Code(s): F90.2 - Attention-deficit hyperactivity disorder, combined type (10) History of depression: Multi Select Codes Urinary/Genital Urinary/Genital CPT Codes: No Charge
[2024-04-28] MEDS: Oxytocin 15 Units/NS 250ml 15 UNITS/250 ML IV.SOLN 2 UNITS IV (12:24)
--- NOTE | 2024-04-28 12:56 | PCM.PN.BLA ---
Progress Note comfortable with epidural current tracing: FHT: 135 Moderate variability reactive no decelerations category I tracing [place]: 2-3 minutes Contractions Membranes:SROM at 1250 clear SVE:5/80/-1 A/P: Continue with position changes Titrate pitocin per protocol Epidural per anesthesia GBS neg Anticipate Dr Badillo aware of above assessment and agrees with plan of care Assessment & Plan Assessment/Plan (1) Encounter for induction of labor: (2) Large for gestational age fetus: (3) Category II heart rate tracing during labor and delivery: (4) COVID-19 affecting , antepartum: (5) Abnormal glucose affecting : (6) Drug use affecting : QUALIFIERS: Trimester: third trimester Qualified Code(s): O99.323 - Drug use complicating , third trimester (7) Supervision of high-risk : QUALIFIERS: Trimester: third trimester Qualified Code(s): O09.93 - Supervision of high risk , unspecified, third trimester (8) : QUALIFIERS: Weeks of gestation: 39 weeks Qualified Code(s): Z3A.39 - 39 weeks gestation of (9) ADD (attention deficit disorder): QUALIFIERS: Hyperactivity presence: present Attention deficit-hyperactivity disorder type: combined inattentive-hyperactive Qualified Code(s): F90.2 - Attention-deficit hyperactivity disorder, combined type (10) History of depression: Multi Select Codes Urinary/Genital Urinary/Genital CPT Codes: No Charge
--- NOTE | 2024-04-28 12:56 | PCM.PN.BLA ---
Progress Note comfortable with epidural current tracing: FHT: 135 Moderate variability reactive no decelerations category I tracing [place]: 2-3 minutes Contractions Membranes:SROM at 1250 clear SVE:5/80/-1 A/P: Continue with position changes Titrate pitocin per protocol Epidural per anesthesia GBS neg Anticipate Dr Badillo aware of above assessment and agrees with plan of care Assessment & Plan Assessment/Plan (1) Encounter for induction of labor: (2) Large for gestational age fetus: (3) Category II heart rate tracing during labor and delivery: (4) COVID-19 affecting , antepartum: (5) Abnormal glucose affecting : (6) Drug use affecting : QUALIFIERS: Trimester: third trimester Qualified Code(s): O99.323 - Drug use complicating , third trimester (7) Supervision of high-risk : QUALIFIERS: Trimester: third trimester Qualified Code(s): O09.93 - Supervision of high risk , unspecified, third trimester (8) : QUALIFIERS: Weeks of gestation: 39 weeks Qualified Code(s): Z3A.39 - 39 weeks gestation of (9) ADD (attention deficit disorder): QUALIFIERS: Hyperactivity presence: present Attention deficit-hyperactivity disorder type: combined inattentive-hyperactive Qualified Code(s): F90.2 - Attention-deficit hyperactivity disorder, combined type (10) History of depression: Multi Select Codes Urinary/Genital Urinary/Genital CPT Codes: No Charge
[2024-04-28 14:39] LABS: Pathologist Review Reviewed
--- NOTE | 2024-04-28 18:04 | PCM.PN.BLA ---
Progress Note comfortable with epidural current tracing: FHT: 135 Moderate variability reactive no decelerations category I tracing [place]: 2-4 minutes Contractions Membranes:remains clear SVE:6/70/-1 soft midposition pitocin At 10 mu A/P: Continue with position changes Titrate pitocin per protocol Epidural per anesthesia GBS neg Anticipate Dr Badillo aware of above assessment and agrees with plan of care Assessment & Plan Assessment/Plan (1) Encounter for induction of labor: (2) Large for gestational age fetus: (3) Category II heart rate tracing during labor and delivery: (4) COVID-19 affecting , antepartum: (5) Abnormal glucose affecting : (6) Drug use affecting : QUALIFIERS: Trimester: third trimester Qualified Code(s): O99.323 - Drug use complicating , third trimester (7) Supervision of high-risk : QUALIFIERS: Trimester: third trimester Qualified Code(s): O09.93 - Supervision of high risk , unspecified, third trimester (8) : QUALIFIERS: Weeks of gestation: 39 weeks Qualified Code(s): Z3A.39 - 39 weeks gestation of (9) ADD (attention deficit disorder): QUALIFIERS: Hyperactivity presence: present Attention deficit-hyperactivity disorder type: combined inattentive-hyperactive Qualified Code(s): F90.2 - Attention-deficit hyperactivity disorder, combined type (10) History of depression: Multi Select Codes Urinary/Genital Urinary/Genital CPT Codes: No Charge
[2024-04-28] MEDS: Lactated Ringers 1,000 ML 50 ML IV (23:50)
[2024-04-29] VITALS (46 sets, daily range): BP systolic 112–157; BP diastolic 60–92; PULSE 94–123; RESP 14–18; TEMP 36.2–37.1; O2SAT 88–98
[2024-04-29] MEDS: Methylergonovine 0.2 MG/ML Ampul IM (01:08)
[2024-04-29] MEDS: Oxytocin 10 UNITS/ML Vial IM (01:12)
--- NOTE | 2024-04-29 01:17 | OB.VAGDELI_ITS ---
Assessment & Plan (1) Vaginal delivery: COMMENT: KW IOL girl Luzma Son (2) Encounter for induction of labor: (3) Large for gestational age fetus: COMMENT: efw 4300g on US today (4) Category II heart rate tracing during labor and delivery: (5) COVID-19 affecting , antepartum: (6) Abnormal glucose affecting : COMMENT: abnormal 1 hour, normal 3 hr gtt (7) Drug use affecting : QUALIFIERS: Trimester: third trimester Qualified Code(s): O99.323 - Drug use complicating , third trimester COMMENT: stopped using when found out she was . positive at NOB. +marijuana 02/10: states no use X 3 weeks (8) Supervision of high-risk : QUALIFIERS: Trimester: third trimester Qualified Code(s): O09.93 - Supervision of high risk , unspecified, third trimester COMMENT: [id number], PRATIMA 05/01/24, girl luzma son Hiram (9) : QUALIFIERS: Weeks of gestation: 39 weeks Qualified Code(s): Z3A.39 - 39 weeks gestation of COMMENT: GBS neg,anatomy nl, NIPT low risk, declined carrier testing (10) History of depression: COMMENT: stable (11) ADD (attention deficit disorder): QUALIFIERS: Hyperactivity presence: present Attention deficit-hy peractivity disorder type: combined inattentive-hyperactive Qualified Code(s): F90.2 - Attention-deficit hyperactivity disorder, combined type Maternal Data Information PRATIMA Calculator Estimated Delivery Date Method Current WG Current Estimate 05/01/24 Ultrasound #1 39w 5d Final PRATIMA: 05/01/24 Final PRATIMA Source: US >20 weeks Gestational age: 39.5 weeks Vaginal Delivery Maternal Presentation Maternal Presentation: Medically Indicated Induction Maternal Presentation: Presented to unit for induction of labor for cat 2 FHT Type of Induction: Cytotec Medical Reason for Induction: Compromise: list: (see list) Vaginal Delivery Information Procedure Performed: Spontaneous Vaginal Delivery Surgeon/Practitioner: Anh Poon Date of Procedure: 04/29/24 Pre-Procedure Diagnosis: see problem list Post-Procedure Diagnosis: same Type of anesthesia: Epidural Estimated Blood Loss: 350 Time of Delivery: 00:56 Findings Description of procedure: Progressed well to 10cm dilated and made steady progress with effective maternal pushing. Delivered the head in RIAN presentation. The head was delivered atraumatically and no nuchal cord was identified. The anterior and posterior shoulders delivered without complication followed by the rest of the and the infant was placed on the maternal abdomen. Delayed cord clamping was employed for approximately 3 minutes. Cord was clamped and cut and gentle traction was applied to the cord and the placenta delivered spontaneously. Immediately following, it was noted to be intact with a 3 vessel cord. Uterine bleeding brisk right after delivery, Methergine and IM Pitocin given uterine sweep performed and clot extracted. Uterine bleeding now stable and appropriate. The perineum and vagina were inspected and noted to have no laceration. EBL was 350cc. Patient and tolerated delivery well. Apgars 8/9. Dr Badillo notified of vaginal delivery and orders reviewed. Garrett cuevas agrees with current plan of care. 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)
--- NOTE | 2024-04-29 01:17 | OB.VAGDELI_ITS ---
Assessment & Plan (1) Vaginal delivery: COMMENT: KW IOL girl Luzma Son (2) Encounter for induction of labor: (3) Large for gestational age fetus: COMMENT: efw 4300g on US today (4) Category II heart rate tracing during labor and delivery: (5) COVID-19 affecting , antepartum: (6) Abnormal glucose affecting : COMMENT: abnormal 1 hour, normal 3 hr gtt (7) Drug use affecting : QUALIFIERS: Trimester: third trimester Qualified Code(s): O99.323 - Drug use complicating , third trimester COMMENT: stopped using when found out she was . positive at NOB. +marijuana 02/10: states no use X 3 weeks (8) Supervision of high-risk : QUALIFIERS: Trimester: third trimester Qualified Code(s): O09.93 - Supervision of high risk , unspecified, third trimester COMMENT: [id number], PRATIMA 05/01/24, girl luzma son Hiram (9) : QUALIFIERS: Weeks of gestation: 39 weeks Qualified Code(s): Z3A.39 - 39 weeks gestation of COMMENT: GBS neg,anatomy nl, NIPT low risk, declined carrier testing (10) History of depression: COMMENT: stable (11) ADD (attention deficit disorder): QUALIFIERS: Hyperactivity presence: present Attention deficit-hy peractivity disorder type: combined inattentive-hyperactive Qualified Code(s): F90.2 - Attention-deficit hyperactivity disorder, combined type Maternal Data Information PRATIMA Calculator Estimated Delivery Date Method Current WG Current Estimate 05/01/24 Ultrasound #1 39w 5d Final PRATIMA: 05/01/24 Final PRATIMA Source: US >20 weeks Gestational age: 39.5 weeks Vaginal Delivery Maternal Presentation Maternal Presentation: Medically Indicated Induction Maternal Presentation: Presented to unit for induction of labor for cat 2 FHT Type of Induction: Cytotec Medical Reason for Induction: Compromise: list: (see list) Vaginal Delivery Information Procedure Performed: Spontaneous Vaginal Delivery Surgeon/Practitioner: Anh Poon Date of Procedure: 04/29/24 Pre-Procedure Diagnosis: see problem list Post-Procedure Diagnosis: same Type of anesthesia: Epidural Estimated Blood Loss: 350 Time of Delivery: 00:56 Findings Description of procedure: Progressed well to 10cm dilated and made steady progress with effective maternal pushing. Delivered the head in RIAN presentation. The head was delivered atraumatically and no nuchal cord was identified. The anterior and posterior shoulders delivered without complication followed by the rest of the and the infant was placed on the maternal abdomen. Delayed cord clamping was employed for approximately 3 minutes. Cord was clamped and cut and gentle traction was applied to the cord and the placenta delivered spontaneously. Immediately following, it was noted to be intact with a 3 vessel cord. Uterine bleeding brisk right after delivery, Methergine and IM Pitocin given uterine sweep performed and clot extracted. Uterine bleeding now stable and appropriate. The perineum and vagina were inspected and noted to have no laceration. EBL was 350cc. Patient and tolerated delivery well. Apgars 8/9. Dr Badillo notified of vaginal delivery and orders reviewed. Garrett cuevas agrees with current plan of care. 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
--- NOTE | 2024-04-29 01:22 | DCINST_ITS ---
Discharge Instructions Diet Discharge Diet: No restrictions Activity Discharge Activity: Return to Normal Activity May resume sexual activity in: 6-8 weeks Dressing / Incision Call your doctor if you observe: Fever of 101 or Higher, Coldness, Increased Pain, Numbness or Tingling, Change in Color, Inability to urinate, Inability to have a bowel movement, Using more than 1 pad per hour, Shortness of breath, Dizziness, Fainting spells, Swelling in the ankles, Chest pain, Increased palpitations (irregular heartbeat), Calf discomfort and Uncontrolled pain Follow Up Care Please Follow Up With: Anh Poon CNM When: Please call the office to schedule your follow up appointment in 6 weeks. If you had high blood pressure please call to schedule an appointment in 2 weeks. Test Results: Test results from this visit will be discussed in further detail at your follow- up appointment, if applicable. Discharge Plan Admission Admit Date/Time: 04/27/24 15:48 Attending Provider: Yolanda Badillo Primary Care Provider: Care Physician,Giuliana Primary Discharge Orders/Prescriptions Prescriptions: No Action NK Referrals / Follow Up: Care Physician,No Primary [Primary Care Provider] -
[2024-04-29] MEDS: Oxytocin 15 Units/NS 250ml 15 UNITS/250 ML IV.SOLN 83 UNITS IV (01:30)
[2024-04-29] MEDS: Acetaminophen 500 MG Tablet 1000 MG PO ×2 (02:57→20:35)
[2024-04-29] MEDS: Ibuprofen 600 MG Tablet PO ×2 (03:32→22:49)
--- NOTE | 2024-04-29 04:20 | NURSING ---
Pt's came out of pt room to tell?RN?that pt would like to get up. This?RN?robin Millan?Baylee?RN?primary care?RN?on this?RN's plan to help pt up to bathroom. When?RN?into pt room, pt intermediate off of bed; this?RN?then immediately told pt she needed to wait for help before standing up for the first time post epidural. Pt stated yeah, my was going to help me get up but my leg was still pretty numb so I told him to go get you guys. This?RN?then commended pt for asking for?RN?help and made sure to remind pt that she should not be getting up independently without nursing staff. This?RN?then asked A.?Isabela?RN?to help assist this?RN?with helping pt up to bathroom. Wheelchair was brought in the room to transfer pt to toilet in the bathroom. Transfer from bed to wheelchair went well; pt tolerated well with no complaints of lightheadedness or dizziness. Pt was then wheeled into bathroom and was able to pivot with assist of?RNs?x2 onto toilet. Pt able to void while on toilet. After pt done voiding, this?RN?back into pt bathroom to assist pt. This?RN?assisted pt with pulling underwear on intermediate with?RN?plan to finish helping pt pull up underwear on pivot back to wheelchair with additional?RN?in bathroom to assist. Pt stood independently while?RN?was grabbing wheelchair and stated I think I can pivot into the wheelchair and then fell on floor as this?RN?was wheeling wheelchair into the bathroom. This?RN?immediately asked pt if she was okay, pt responded that she was, and then asked additional?RN?to help this?RN?get pt back up onto toilet while this?RN?continued to reiterate importance of not standing without?RN?assistance. A.?Gagan?RN?assisted this?RN?with pulling pt back up onto toilet. Wheelchair was then brought back into room, and pt was safely transferred into wheelchair with assist from RNsx2 and underwear pulled up on transfer. Pt then wheeled back to bed and transferred safely back to bed by RNsx2. Pt continues to report feeling okay and pt assessment?WNL. Pt then resting comfortably in bed before this?RN?out of pt room. Prior to leaving,?RN?again reminded pt to call for assistance prior to ambulation.
--- NOTE | 2024-04-29 04:20 | NURSING ---
Pt's came out of pt room to tell?RN?that pt would like to get up. This?RN?robin Millan?Baylee?RN?primary care?RN?on this?RN's plan to help pt up to bathroom. When?RN?into pt room, pt alf off of bed; this?RN?then immediately told pt she needed to wait for help before standing up for the first time post epidural. Pt stated yeah, my was going to help me get up but my leg was still pretty numb so I told him to go get you guys. This?RN?then commended pt for asking for?RN?help and made sure to remind pt that she should not be getting up independently without nursing staff. This?RN?then asked A.?[place]?RN?to help assist this?RN?with helping pt up to bathroom. Wheelchair was brought in the room to transfer pt to toilet in the bathroom. Transfer from bed to wheelchair went well; pt tolerated well with no complaints of lightheadedness or dizziness. Pt was then wheeled into bathroom and was able to pivot with assist of?RNs?x2 onto toilet. Pt able to void while on toilet. After pt done voiding, this?RN?back into pt bathroom to assist pt. This?RN?assisted pt with pulling underwear on alf with?RN?plan to finish helping pt pull up underwear on pivot back to wheelchair with additional?RN?in bathroom to assist. Pt stood independently while?RN?was grabbing wheelchair and stated I think I can pivot into the wheelchair and then fell on floor as this?RN?was wheeling wheelchair into the bathroom. This?RN?immediately asked pt if she was okay, pt responded that she was, and then asked additional?RN?to help this?RN?get pt back up onto toilet while this?RN?continued to reiterate importance of not standing without?RN?assistance. A.?Gagan?RN?assisted this?RN?with pulling pt back up onto toilet. Wheelchair was then brought back into room, and pt was safely transferred into wheelchair with assist from RNsx2 and underwear pulled up on transfer. Pt then wheeled back to bed and transferred safely back to bed by RNsx2. Pt continues to report feeling okay and pt assessment?WNL. Pt then resting comfortably in bed before this?RN?out of pt room. Prior to leaving,?RN?again reminded pt to call for assistance prior to ambulation.
--- NOTE | 2024-04-29 23:21 | NURSING ---
Patient decided to no longer pump or put to breast, states it is too painful. Discussed plan of care with patient and feeding of . Mother emotional and feels only formula feeding is the best option moving forward. RN provided emotional support.
[2024-04-30 01:00] VITALS: BP 111/60; PULSE 90; RESP 16; TEMP 36.3; O2SAT 97
--- NOTE | 2024-04-30 01:00 | NURSING ---
RN entered room to check on pt because infant crying frequently overnight and heard at nursing station. FOB holding on arrival and mother visibly upset. RN discussed plan for hearing screen. Mother staring blankly at RN, RN offered to do hearing screening in room at bedside or in nursery if mother needed to rest. Mother emotional overnight and cried when testing was done previously at bedside. Mother states you can take her to the nursery but felt disconnected and distant. RN offered to do hearing screening at bedside so mother could watch procedure and explained how it would be done. Mother again stated you can take her. Infant to nursery for hearing screening and instructed mother to sleep while infant out of room. Support person present in room overnight and helpful with infant care. Social work has not yet seen and assessed pt.
[2024-04-30 01:06] VITALS: BP 111/60; PULSE 86
[2024-04-30 03:10] VITALS: BP 132/82; PULSE 96; RESP 18; TEMP 36.2; O2SAT 99
--- NOTE | 2024-04-30 07:30 | PCM.PN.OB ---
Subjective Subjective Patient doing well without complaints. Tolerating PO. Ambulating and voiding without difficulty. feeding well. Denies chest pain, shortness of breath, calf pain/swelling, fevers, chills, lightheadedness. Objective Data Objective Data Vital Signs: Vital Signs Temp Pulse Resp BP Pulse Ox O2 Del Method 97.2 F L 96 18 132/82 H 99 Room Air 04/30/24 03:10 04/30/24 03:10 04/30/24 03:10 04/30/24 03:10 04/30/24 03:10 04/30/24 03:10 Oxygen Delivery Method Room Air Weight: 197 lb 3.2 oz Body Mass Index (BMI) 34.9 Intake & Output: Intake and Output for Last 24 Hours 04/28/24 04/29/24 04/30/24 23:59 23:59 22:59 Intake Total 5510.37 / 5510.37 452.63 / 452.63 Output Total 2400 / 2400 1300 / 1300 Balance 3110.37 / 3110.37 -847.37 / -847.37 Lab / Micro Data 04/27/24 21:00 04/27/24 08:44 Micro: Microbiology 04/27/24 13:40 Urine, Clean Catch Urine Culture - Final Mixed Gram Positive Organisms 04/27/24 13:40 Mucosa - Nose SARS-CoV-2, Influenza & RSV (PCR) - Final SARS-CoV-2 (COVID 19 PCR) ROS Constitutional Constitutional: Reports systems reviewed and no addt'l complaints, except as documented Cardiovascular Cardiovascular: Reports systems reviewed and no addt'l complaints, except as documented Respiratory/Chest Respiratory/Chest: Reports systems reviewed and no addt'l complaints, except as documented Gastrointestinal Gastrointestinal: Reports systems reviewed and no addt'l complaints, except as documented Physical Exam Const alert, oriented x3 and no apparent distress HEENT Head and Scalp: atraumatic Resp normal respiratory effort GI soft to palpation and non-tender Bimanual Exam - Vag & Uterus: uterus non-tender Uterus Palpation: uterus fundus firm (below Umbilicus) Assessment & Plan (1) Vaginal delivery: COMMENT: KW IOL girl Luzma Moyer PLAN: Plan s/p PPD # 1 1. routine post delivery care 2. breast feeding- support given 3. rh positive 4. rubella immune
[2024-04-30 09:30] VITALS: BP 127/73; PULSE 93; RESP 16; TEMP 36.6
[2024-04-30] MEDS: Ibuprofen 600 MG Tablet PO (10:12)
[2024-04-30 10:13] VITALS: BP 127/73; PULSE 93
--- NOTE | 2024-04-30 12:20 | CASEMGMT ---
Social Work Assessment Labor and Delivery Unit Patient Address: [address] [place] [address] [address], [place] [address] Phone number: Date of Referral: 04/27/2024 Time of Referral: 20:16 Referred By: Yolanda Badillo Date of Intervention: ?04/30/2024 Time of Intervention: 12:21 Reason for Referral: Substance Abuse History obtained from: Medical records, mother of baby (MOB) and father of baby (FOB).? Household composition: MOB Sully, age 23, FOB Hiram Galicia, age 29, daughter Luzma Galicia, born 04/29/24 and MOB?s mother, grandmother, stepfather Sunil and 29 year old step-brother Toñito. Patient's parent/guardian status: MOB reported she and the FOB have been together for 5-6 years but are not . ?Both are actively involved and will be providing care for baby. MOB denied any concerns with domestic violence and described a positive and supportive relationship with the FOB. Medical History: ?: 1, Para, now 1. TRE received PNC through [facility] beginning at 11 weeks and 3 days. There was a gap in PNC where the MOB missed two appointments from weeks 15-26 weeks due to alleged problems with her phone. Apgars: 8 and 9. Weight: 8lbs, 7 oz. Round Cutter Operator: Roro Sanchez through [facility] in [place]. Educational Status: MOB and FOB denied any issues or concerns with reading or writing. ?MOB earned her GED and the FOB earned his High school Diploma. Financial Status: MOB and FOB reported their income is sufficient to meet the needs of their family at this time. MOB is currently unemployed and is planning on being a stay at home mom. FOB is currently employed multimedia services coordinator with [employer]. Infant Supplies: MOB and FOB reported they have all the supplies they need for baby at this time including but not limited to: Car seat, bassinet, crib, diapers, bottles, breast pump and clothing. TRE reported the only formula they have as of right now is what they are being sent home with because she had planned on however that hasn?t worked out the way she had planned and has been experiencing pain. MOB reported she is going to express pump and will also combine formula as needed.? MOB reported the FOB has money the finances to get additional formula as needed. Childcare/Caregiver(s):? TRE identified herself as the person who will be the primary caregiver while the FOB works and that the FOB will assist during the times when he is home as well as ?s maternal grandmother (MGM) and paternal grandmother (PGM) and paternal grandfather (PGF). ? Transportation:? MOB and FOB reported they are both licensed drivers and have a reliable vehicle to take baby to and from all medical appointments. No transportation issues identified. Programs/Agencies Involved: MOB and FONe are currently connected to [employer] and are on Medicaid.? TRE also gets food stamps and has an upcoming appointment with [facility]. TRE reported she used to be involved with counseling through [employer] when she was either 11 or 14 and enjoyed it but doesn?t feel a need to get re-connected at this time. Children Services/Legal Issues:? Denied. Behavioral Health Issues: ??Mental Health History: TRE has a history of ADD, Depression and Anxiety. MOB reported it was ?worse? when she was younger. MOB denied being on any medication for depression or anxiety and feels it is not needed. MOB reported she?s not depressed however does have more anxiety and worries a lot. ?Substance Use History: TRE tested positive for cannabinoids on 10/14/23 and 01/28/24 and tested negative on 04/27/2024. TRE reported she last smoked a few times in January so that she could eat. MOB reported she was still feeling nauseous and ended up taking Zofran to help alleviate symptoms. ?Family History: TRE reported feeling her father has an issue with substance abuse however reported he lives in [place] and MOB hasn?t had any contact with him since she was 9 or 10. ?Drug Screens: TRE tested positive for cannabinoids on 10/14/23 and 01/28/24 and tested negative on 04/27/2024. [place] results are still pending. ? Family/Social Stressors: ?MOB and FOB denied any current family or social stressors. Support Systems: Ample.? MOB and FOB identified each other as supports and also identified ?s MGM and paternal grandparents (PGP?s) as strong supports. Depression/Shaken Baby/Safe Sleeping: diversified crops i farmworker provided verbal and written education on PPD, Safe Sleeping and Shaken Baby.? Parents verbalized an understanding. ??? ASSESSMENT:? MOB provided consent to social work visit. Upon arrival, MOB was in the room alone as the FOB had stepped out for a short period of time. MOB was in her hospital bed holding throughout the visit. While meeting with the MOB alone, MOB reported feeling safe and denied any previous or current domestic violence.? MOB denied any safety concerns. MOB did admit to having heightened levels of anxiety MOB reported she was afraid to fall asleep last night because she didn?t want both herself and the FOB to both sleep while was sleeping because she was afraid the would need something and they wouldn?t wake up.? MOB also reported she started crying when had to get ?pricked? two times in a row.? diversified crops i farmworker provided education and again, discussed mental health resources that could possibly help manage symptoms which MOB declined. Later in the visit, the FOB arrived and had bought a new bottle for . FOB was also verbally engaged.? diversified crops i farmworker observed positive interaction between the MOB and FOB as well as towards .? MOB held baby close to her in a warm blanket throughout the visit and was observed to be very gentle and attentive towards . ? Safe Plan of Care for related to substance use: Extension Professor provided education which MOB verbalized she understood.? MOB reported she does not plan on smoking marijuana in the future but if she does it will not be while providing care for . MOB denied any need for substance abuse resources at this time. PLAN:? Baby to be discharged home when ready.? diversified crops i farmworker also provided written information on depression, depression resources and Help Me Grow as additional resources offered by social organization professor which MOB and FOB accepted. No other services requested or indicated. Per protocol, social organization professor will make a referral to Children Services due to MOB using drugs during . Annalise Nicholson, CONCRETE RUBBER, SERVICE STATION OPERATOR
--- NOTE | 2024-04-30 12:20 | CASEMGMT ---
Social Work Assessment Labor and Delivery Unit Patient Address: [address] [place] [address] [address], [place] [address] Phone number: Date of Referral: 04/27/2024 Time of Referral: 20:16 Referred By: Yolanda Badillo Date of Intervention: ?04/30/2024 Time of Intervention: 12:21 Reason for Referral: Substance Abuse History obtained from: Medical records, mother of baby (MOB) and father of baby (FOB).? Household composition: MOB Sully, age 22, FOB Hiram Galicia, age 29, daughter Luzma Galicia, born 04/29/24 and MOB?s mother, grandmother, stepfather Sunil and 29 year old step-brother Toñito. Patient's parent/guardian status: MOB reported she and the FOB have been together for 5-6 years but are not . ?Both are actively involved and will be providing care for baby. MOB denied any concerns with domestic violence and described a positive and supportive relationship with the FOB. Medical History: ?: 1, Para, now 1. TRE received PNC through [facility] beginning at 11 weeks and 3 days. There was a gap in PNC where the MOB missed two appointments from weeks 15-26 weeks due to alleged problems with her phone. Apgars: 8 and 9. Weight: 8lbs, 7 oz. Accounts Payable Administrator: Roro Sanchez through [facility] in [place]. Educational Status: MOB and FOB denied any issues or concerns with reading or writing. ?MOB earned her GED and the FOB earned his High school Diploma. Financial Status: MOB and FOB reported their income is sufficient to meet the needs of their family at this time. MOB is currently unemployed and is planning on being a stay at home mom. FOB is currently employed airport planner with [employer]. Infant Supplies: MOB and FOB reported they have all the supplies they need for baby at this time including but not limited to: Car seat, bassinet, crib, diapers, bottles, breast pump and clothing. TRE reported the only formula they have as of right now is what they are being sent home with because she had planned on however that hasn?t worked out the way she had planned and has been experiencing pain. MOB reported she is going to express pump and will also combine formula as needed.? MOB reported the FOB has money the finances to get additional formula as needed. Childcare/Caregiver(s):? TRE identified herself as the person who will be the primary caregiver while the FOB works and that the FOB will assist during the times when he is home as well as ?s maternal grandmother (MGM) and paternal grandmother (PGM) and paternal grandfather (PGF). ? Transportation:? MOB and FOB reported they are both licensed drivers and have a reliable vehicle to take baby to and from all medical appointments. No transportation issues identified. Programs/Agencies Involved: MOB and FONe are currently connected to [employer] and are on Medicaid.? TRE also gets food stamps and has an upcoming appointment with [facility]. TRE reported she used to be involved with counseling through [employer] when she was either 11 or 14 and enjoyed it but doesn?t feel a need to get re-connected at this time. Children Services/Legal Issues:? Denied. Behavioral Health Issues: ??Mental Health History: TRE has a history of ADD, Depression and Anxiety. MOB reported it was ?worse? when she was younger. MOB denied being on any medication for depression or anxiety and feels it is not needed. MOB reported she?s not depressed however does have more anxiety and worries a lot. ?Substance Use History: TRE tested positive for cannabinoids on 10/14/23 and 01/28/24 and tested negative on 04/27/2024. TRE reported she last smoked a few times in January so that she could eat. MOB reported she was still feeling nauseous and ended up taking Zofran to help alleviate symptoms. ?Family History: TRE reported feeling her father has an issue with substance abuse however reported he lives in [place] and MOB hasn?t had any contact with him since she was 9 or 10. ?Drug Screens: TRE tested positive for cannabinoids on 10/14/23 and 01/28/24 and tested negative on 04/27/2024. [place] results are still pending. ? Family/Social Stressors: ?MOB and FOB denied any current family or social stressors. Support Systems: Ample.? MOB and FOB identified each other as supports and also identified ?s MGM and paternal grandparents (PGP?s) as strong supports. Depression/Shaken Baby/Safe Sleeping: facilities maintenance worker provided verbal and written education on PPD, Safe Sleeping and Shaken Baby.? Parents verbalized an understanding. ??? ASSESSMENT:? MOB provided consent to social work visit. Upon arrival, MOB was in the room alone as the FOB had stepped out for a short period of time. MOB was in her hospital bed holding throughout the visit. While meeting with the MOB alone, MOB reported feeling safe and denied any previous or current domestic violence.? MOB denied any safety concerns. MOB did admit to having heightened levels of anxiety MOB reported she was afraid to fall asleep last night because she didn?t want both herself and the FOB to both sleep while was sleeping because she was afraid the would need something and they wouldn?t wake up.? MOB also reported she started crying when had to get ?pricked? two times in a row.? facilities maintenance worker provided education and again, discussed mental health resources that could possibly help manage symptoms which MOB declined. Later in the visit, the FOB arrived and had bought a new bottle for . FOB was also verbally engaged.? facilities maintenance worker observed positive interaction between the MOB and FOB as well as towards .? MOB held baby close to her in a warm blanket throughout the visit and was observed to be very gentle and attentive towards . ? Safe Plan of Care for related to substance use: Lamination Builder provided education which MOB verbalized she understood.? MOB reported she does not plan on smoking marijuana in the future but if she does it will not be while providing care for . MOB denied any need for substance abuse resources at this time. PLAN:? Baby to be discharged home when ready.? facilities maintenance worker also provided written information on depression, depression resources and Help Me Grow as additional resources offered by social services analyst which MOB and FOB accepted. No other services requested or indicated. Per protocol, social services analyst will make a referral to Children Services due to MOB using drugs during . Annalise Nicholson, CERTIFIED CONTROL SYSTEMS TECHNICIAN, RADIATION ENGINEER
--- NOTE | 2024-04-30 17:55 | CASEMGMT ---
metal worker made phone contact with Children Services Hotel Office Manager Roro and made a referral for drug use while per protocol. No referral number was generated. Annalise Nicholson, STORE COORDINATOR, WEATHER FORCASTER
--- NOTE | 2024-04-30 17:55 | CASEMGMT ---
steel layout worker made phone contact with [facility] Human Resources Representative Roro and made a referral for drug use while per protocol. No referral number was generated. Annalise Nicholson, CONTENT DIRECTOR, HAND I THERMAL CUTTER
--- NOTE | 2024-05-05 00:14 | PCM.DC.SUM ---
Providers Date of Admission: 04/27/24 Primary Care Physician: Giuliana Primary Care Phys Reason For Visit: LABOR AND DELIVERY Diagnosis Discharge Diagnosis (1) Vaginal delivery: Status: Acute Code(s): O80 - Encounter for full-term uncomplicated delivery Plan s/p PPD # 1 1. routine post delivery care 2. breast feeding- support given 3. rh positive 4. rubella immune Medications at Discharge Home Medications NK 04/21/24 Hospital Course Summary of Care Provided Hospital Course: admitted for IOL secondayr to abnormal FHT, underwent IOL and delivered uncomplicated with ready for dc ppd2 Weight / BMI Weight Weight: 197 lb 3.2 oz Body Mass Index (BMI) 34.9 ABG / Lab / Microbiology Data 04/27/24 21:00 04/27/24 08:44 Microbiology: Microbiology 04/27/24 13:40 Urine, Clean Catch Urine Culture - Final Mixed Gram Positive Organisms 04/27/24 13:40 Mucosa - Nose SARS-CoV-2, Influenza & RSV (PCR) - Final SARS-CoV-2 (COVID 19 PCR) D/C Instructions Discharge Diet: No restrictions May resume sexual activity in: 6-8 weeks Call your doctor if you observe: Fever of 101 or Higher, Coldness, Increased Pain, Numbness or Tingling, Change in Color, Inability to urinate, Inability to have a bowel movement, Using more than 1 pad per hour, Shortness of breath, Dizziness, Fainting spells, Swelling in the ankles, Chest pain, Increased palpitations (irregular heartbeat), Calf discomfort and Uncontrolled pain Please Follow Up With: Anh Poon CNM When: Please call the office to schedule your follow up appointment in 6 weeks. If you had high blood pressure please call to schedule an appointment in 2 weeks. Meaningful Use Info Meaningful Use Meaningful Use Diagnoses (Choose all that apply): None applicable Ischemic Stroke Statin Dosing Therapy Reference: STATIN DOSE THERAPY REFERENCE: * Patients > 75 years receive moderate or high dose statin therapy. * Patients 75 years or YOUNGER should receive HIGH intensity statin dose unless contraindicated. You will be required to document reason for non-treatment if statin daily dose does not meet guidelines. HIGH DOSE STATIN THERAPY DAILY Atorvastatin > than or = to 40 mg Rosuvastatin > than or = to 20 mg Amlodipine + Atorvastatin > than or = to 2.5/40 mg Ezetimibe + Simvastatin 10/80 mg Simvastatin 80mg Discharge Plan Admission Admit Date/Time: 04/27/24 15:48 Attending Provider: Yolanda Badillo Primary Care Provider: Care Physician,No Primary Instructions Patient Instructions: After a Vaginal Discharge Orders/Prescriptions Prescriptions: No Action NK Referrals / Follow Up: Care Physician,No Primary [Primary Care Provider] - Disposition Disposition (needs filled in before D/C Order can be placed): Home, Self Care
== END 2024-04-30 14:10 | disposition home or self-care (01) | DRG 560 ==
LOC: WPOUT 04-28 09:15 → WP 04-28 09:15
PROVIDERS: Admitting Provider Obstetrics & Gynecology; Referring Provider Obstetrics & Gynecology; Visit Provider Obstetrics & Gynecology
DX: O76 Abnormality in fetal heart rate and rhythm complicating labor and delivery (principal); Z37.0 Single live birth; U07.1 COVID-19; O99.324 Drug use complicating childbirth; F12.90 Cannabis use, unspecified, uncomplicated; F17.210 Nicotine dependence, cigarettes, uncomplicated; O36.63X0 Maternal care for excessive fetal growth, third trimester, not applicable or unspecified; O99.334 Smoking (tobacco) complicating childbirth; O98.52 Other viral diseases complicating childbirth; O42.02 Full-term premature rupture of membranes, onset of labor within 24 hours of rupture; O99.344 Other mental disorders complicating childbirth; F90.2 Attention-deficit hyperactivity disorder, combined type; Z3A.40 40 weeks gestation of pregnancy
CPT/HCPCS: 36415; 59025; 59050; 76816; 76819; 80053; 80307; 81002; 85025; 86780; 86850; 86900; 86901; 87086; 87088; 87631; 93005; 99221; J7120; A4216; G0378

== ENCOUNTER → 2024-09-27 | Outpatient (CLI) | payer MEDICAID, SELFPAY ==
[2024-09-27 13:39] LABS: HIV Nonreactive (Nonreactive); Syphilis Antibodies Nonreactive (Nonreactive)
[2024-09-28 20:08] LABS: HCV Quant. RNA PCR HCV Not Detected IU/mL (.)
[2024-09-29 21:07] LABS: Chlamydia By Nucleic Acid AMP Negative (Negative); Gonococcus By Nucleic Acid AMP Negative (Negative)
== END | disposition home or self-care (01) ==
PROVIDERS: Referring Provider Nurse Practitioner Women's Health; Visit Provider Nurse Practitioner Women's Health
DX: R10.2 Pelvic and perineal pain (principal); N91.2 Amenorrhea, unspecified; Z20.2 Contact with and (suspected) exposure to infections with a predominantly sexual mode of transmission
CPT/HCPCS: 36415; 86695; 86696; 86703; 86780; 87070; 87205; 87491; 87522; 87591